=== PATIENT | female | born 1955 | race Caucasian/White ===

== ENCOUNTER 2019-06-10 10:50 | Outpatient (CLI) | payer BC ==
--- NOTE | 2019-06-15 10:06 | Mammography Report ---
Reason: ROUTINE MAMMO Procedure Date: 06/10/2019 Accession Number: [id number] / [id number] Procedure: INOCENTE - Screening Mammo w/Ismael CPT Code: Final Report FULL RESULT: EXAM: Screening Mammo w/Ismael DATE: 06/10/2019 11:17 AM CLINICAL HISTORY: Screening encounter. TECHNIQUE: (B) - Bilateral CC and MLO views were obtained. Left laterally exaggerated cc view is obtained. COMPARISON: None PARENCHYMAL PATTERN: (F) - The breast(s) demonstrate(s) diffuse fatty replacement. FINDINGS: There are no suspicious masses, calcifications, or areas of distortion. IMPRESSION: Negative examination. BI-RADS category 1. RECOMMENDATION: (ANNUAL) - Recommend routine annual screening mammography. BI-RADS CATEGORY: (1) - Negative. STANDARD QUALIFYING STATEMENTS: 1. This examination was not reviewed with the aid of Computer-Aided Detection (CAD). 2. A negative or benign imaging report should not preclude biopsy if clinically suspicious findings are present. 3. Dense breasts may obscure an underlying neoplasm. 4. This examination was reviewed with the aid of 3D breast imaging (tomosynthesis).
== END 2019-06-10 10:51 | disposition home or self-care (01) ==
LOC: DI 10:50
DX: Z12.31 Encounter for screening mammogram for malignant neoplasm of breast (principal)
CPT/HCPCS: 77063; 77067

== ENCOUNTER 2019-09-24 09:14 | Day surgery (SDC) | payer MEDICARE ==
[2019-09-24] MEDS ORDERED: fentaNYL 250 MCG/5 ML VIAL IVP ONE (09:15)
[2019-09-24] MEDS ORDERED: MIDAZOLAM 2 MG/2 ML VIAL IVP ONE (09:15)
[2019-09-24] MEDS ORDERED: LACTATED RINGERS 1,000 ML IV ONE (09:39)
[2019-09-24] MEDS ORDERED: LIDO GARGLE 30 ML BOTTLE ONE (11:52)
[2019-09-24] MEDS ORDERED: LIDO GARGLE 30 ML BOTTLE TOP ONE (12:01)
[2019-09-24 12:47] VITALS: BP 118/52
== END 2019-09-24 09:15 | disposition home or self-care (01) ==
LOC: SDS 09:14
PROVIDERS: ATTEND Surgery
PROC: 0DB68ZX Excision of Stomach, Via Natural or Artificial Opening Endoscopic, Diagnostic (ICD-10-PCS; 2019-09-24)
PROC: 0DB48ZX Excision of Esophagogastric Junction, Via Natural or Artificial Opening Endoscopic, Diagnostic (ICD-10-PCS; 2019-09-24)
PROC: 0DB98ZX Excision of Duodenum, Via Natural or Artificial Opening Endoscopic, Diagnostic (ICD-10-PCS; principal; 2019-09-24 10:45)
DX: K21.0 Gastro-esophageal reflux disease with esophagitis (principal); K29.60 Other gastritis without bleeding; E66.01 Morbid (severe) obesity due to excess calories; I10 Essential (primary) hypertension; I97.89 Other postprocedural complications and disorders of the circulatory system, not elsewhere classified; I89.0 Lymphedema, not elsewhere classified; M06.9 Rheumatoid arthritis, unspecified; Z68.43 Body mass index [BMI] 50.0-59.9, adult; Z79.82 Long term (current) use of aspirin; Z79.899 Other long term (current) drug therapy; Z96.653 Presence of artificial knee joint, bilateral
CPT/HCPCS: 43235; A9270; J3010; J7120

== ENCOUNTER → 2019-11-18 | Outpatient (CLI) | payer MEDICARE ==
--- NOTE | 2019-11-18 10:35 | XRAY Report ---
PROCEDURE: Cervical Spine 3 View INDICATIONS: ACUTE NECK PAIN, RA TECHNIQUE: 3 view(s) of the cervical spine were acquired. COMPARISON: None. FINDINGS: Bones: No fractures or dislocations to the T1 level. Loss of normal cervical spine curvature. There is mild, presently 3 mm of C4-C5 anterolisthesis. The lateral masses of C1 appear intact on the odont oid view. No suspicious bony lesions. Moderate C4-C5, C5-C6 and C6-C7 degenerative disc disease. Mil d C4-C5 and C5-C6, C6-C7 and C7-T1 facet arthropathy. Soft tissues: No prevertebral soft tissue swelling. IMPRESSION: 1. Loss of normal cervical spine curvature. 2. Multilevel degenerative disc disease. 3. Multilevel facet arthropathy. 4. No osseous erosive changes. 5. No fracture. No acute osseous lesion. If there is continued clinical concern for pathology, then M RI should be considered for further evaluation. Reviewed by: Susan Pope MD, PhD on 11/18/2019 10:34 AM PDT Approved by: Susan Pope MD, PhD on 11/18/2019 10:34 AM PDT Station ID: [id number]
== END ==
LOC: DI.WCP 09:20
PROVIDERS: ATTEND Family Medicine
DX: M50.321 Other cervical disc degeneration at C4-C5 level (principal); M43.12 Spondylolisthesis, cervical region; M47.812 Spondylosis without myelopathy or radiculopathy, cervical region
CPT/HCPCS: 72040

== ENCOUNTER 2019-11-26 08:00 | Outpatient (CLI) | payer MEDICARE | END 2019-11-26 23:59 | disposition home or self-care (01) | LOC: LAB.WCP 08:00 | PROVIDERS: ATTEND Family Medicine | DX: E04.1 Nontoxic single thyroid nodule (principal) | CPT/HCPCS: 36415; 84443 ==

== ENCOUNTER 2020-05-09 07:00 | Outpatient (CLI) | payer MEDICARE ==
[2020-05-09 12:45] LABS: % IRON SATURATION 22 % (20-50); ALBUMIN 3.7 g/dL (3.2-5.5); ALKALINE PHOSPHATASE 151 IU/L (42-121); ALT ALANINE AMINOTRANSFERASE 31 IU/L (10-60); AST ASPARTATE AMINOTRANSFERASE 23 IU/L (10-42); BILIRUBIN,TOTAL 0.7 mg/dL (0.2-1.0); BUN - BLOOD UREA NITROGEN 32 mg/dL (6-20); CALCIUM 9.4 mg/dL (8.5-10.3); CARBON DIOXIDE - CO2 29 mmol/L (21-32); CHLORIDE 102 mmol/L (101-111); CHOL/HDL RATIO 3.8 (<4.4); CHOLESTEROL 200 mg/dL; CREATININE 0.7 mg/dL (0.4-1.0); GLUCOSE 100 mg/dL (70-100); HDL CHOLESTEROL 53 mg/dL; IRON 74 ug/dL (28-170); LDL CHOLESTEROL,CALCULATED 119 mg/dL; LDL/HDL RATIO 2.2 (<4.4); TOTAL IRON BINDING CAPACITY 333 ug/dL (250-450); TOTAL PROTEIN 7.4 g/dL (6.7-8.2); TRANSFERRIN 238 mg/dL (192-382); VLDL CHOLESTEROL 28 mg/dL
[2020-05-09 12:50] LABS: THYROID STIMULATING HORMONE 1.04 uIU/mL (0.34-5.60)
[2020-05-09 12:51] LABS: FREE T3 3.23 pg/mL (2.5-3.9)
[2020-05-09 12:52] LABS: FREE T4 (FREE THYROXINE) 1.34 ng/dL (0.58-1.64)
[2020-05-09 13:00] LABS: FERRITIN 65.5 ng/mL (11.0-306.8)
[2020-05-09 13:03] LABS: BASOPHILS % (AUTO) 0.6 %; EOSINOPHILS # (AUTO) 0.3 10^3/uL (0.0-0.7); EOSINOPHILS % (AUTO) 4.4 %; HGB - HEMOGLOBIN 14.2 g/dL (12.0-16.0); LYMPHOCYTES # (AUTO) 2.3 10^3/uL (1.5-3.5); LYMPHOCYTES % (AUTO) 36.6 %; MEAN CORPUSCULAR HEMOGLOBIN 29.2 pg (27.0-31.0); MEAN CORPUSCULAR HGB CONC 32.1 g/dL (32.0-36.0); MEAN CORPUSCULAR VOLUME 90.8 fL (81.0-99.0); MEAN PLATELET VOLUME 10.3 fL (7.9-10.8); MONOCYTES # (AUTO) 0.6 10^3/uL (0.0-1.0); MONOCYTES % (AUTO) 9.6 %; NEUTROPHILS % (AUTO) 48.5 %; PLT - PLATELET COUNT 208 10^3/uL (130-450); RED BLOOD COUNT 4.87 10^6/uL (4.20-5.40); RED CELL DISTRIBUTION WIDTH 13.6 % (12.0-15.0); WHITE BLOOD COUNT 6.2 x10^3/uL (4.8-10.8)
[2020-05-09 13:15] LABS: HEMOGLOBIN A1c% 5.3 % (4.27-6.07)
== END 2020-05-09 23:59 | disposition home or self-care (01) ==
LOC: LAB.WCP 07:00
PROVIDERS: ATTEND Family Medicine
DX: E89.0 Postprocedural hypothyroidism (principal); K91.2 Postsurgical malabsorption, not elsewhere classified
CPT/HCPCS: 36415; 80053; 80061; 81599; 82306; 82607; 82728; 82747; 83036; 83540; 83721; 83970; 84425; 84439; 84443; 84466; 84481; 84590; 85025

== ENCOUNTER 2020-05-16 12:26 | Outpatient (CLI) | payer MEDICARE ==
--- NOTE | 2020-05-16 16:39 | XRAY Report ---
PROCEDURE: Hips 2V BILAT INDICATIONS: R HIP PX TECHNIQUE: 2 views of the hip were acquired. COMPARISON: None FINDINGS: Bones: No fractures or dislocations. No suspicious bony lesions. The visualized pelvic ring appear s intact. Mild bilateral degenerative hip joint space narrowing. Small paratracheal or osteophytes a re present. Degenerative changes are present within the lower lumbar spine. Soft tissues: No suspicious soft tissue calcifications or masses. 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 Reviewed by: Rea Minaya MD on 05/16/2020 4:37 PM PST Approved by: Rea Minaya MD on 05/16/2020 4:37 PM PST Station ID: [id number]
== END 2020-05-16 12:27 | disposition home or self-care (01) ==
LOC: DI.N 12:26
PROVIDERS: ATTEND Family Medicine
DX: M16.0 Bilateral primary osteoarthritis of hip (principal)